=== PATIENT | male | born 1960 | race Caucasian/White ===

== ENCOUNTER 2017-08-17 20:59 | Emergency (ER) | payer SELFPAY ==
[~2017-08-17] VITALS: Ht 177.8 cm; Wt 80.0 kg
--- NOTE | 2017-08-18 07:41 | PD ---
HPI Chief Complaint: Alcohol/Drug Intoxication Time Seen by Provider: 07:40 Travel History International Travel<30 days: No Contact w/Intl Traveler<30days: No Traveled to known affect area: No History of Present Illness HPI Patient is a 56-year-old male who is brought in due to alcohol intoxication. He admits to drinking last night. He has no medical complaints. He denies any falls or trauma. Severity is moderate. [facility] Past Medical History Medical History: Denies Significant Hx Social History Alcohol Use: Yes Tobacco Use: Yes Substance Use: No Allergies-Medications (Allergen,Severity, Reaction): Coded Allergies: Penicillins (Verified Allergy, Unknown, 08/17/17) Reported Meds & Prescriptions Reported Meds & Active Scripts Active No Active Prescriptions or Reported Medications Review of Systems ROS Limitations: Intoxication Physical Exam Narrative GENERAL: Awake and alert, no acute distress. SKIN: Focused skin assessment warm/dry. No wounds or signs of infection. HEAD: Atraumatic. Normocephalic. EYES: Pupils equal and round. No scleral icterus. Extraocular movements intact. ENT: No nasal bleeding or discharge. Mucous membranes pink and moist. NECK: Trachea midline. No JVD. CARDIOVASCULAR: Regular rate and rhythm. No murmur appreciated. RESPIRATORY: No accessory muscle use. Clear to auscultation. Breath sounds equal bilaterally. GASTROINTESTINAL: Abdomen soft, non-tender, nondistended. MUSCULOSKELETAL: No obvious deformities. No clubbing. No cyanosis. No edema. NEUROLOGICAL: Awake and alert. No obvious cranial nerve deficits. Motor grossly within normal limits. Normal speech. PSYCHIATRIC: Appropriate mood and affect; insight and judgment normal. Data Data Orders Orders Alcohol (Ethanol) (08/17/17 21:18) Ed Discharge Order (08/18/17 07:40) Labs Laboratory Tests Test 08/17/17 21:20 Ethyl Alcohol Level 317 MG/DL MDM Medical Decision Making Medical Screen Exam Complete: Yes Emergency Medical Condition: Yes Medical Record Reviewed: Yes Differential Diagnosis Alcohol intoxication versus dehydration versus drug intoxication Narrative Course Patient is a 56-year-old male who is brought in due to intoxication. He has no complaints. He is observed in the emergency department until sober. Advised to quit drinking. Advised follow-up with a primary doctor. Advised return to the ED as needed for any worsening symptoms. Diagnosis Primary Impression: Alcohol intoxication Qualified Codes: F10.920 - Alcohol use, unspecified with intoxication, uncomplicated Patient Instructions: Alcohol Intoxication (ED), General Instructions Additional Instructions: Stop drinking alcohol. Drink plenty of fluids. Return to the ED as needed for any worsening symptoms. Scripts No Active Prescriptions or Reported Meds Disposition: 01 DISCHARGE HOME Condition: Stable Yesi Pagan MD Aug 18, 2017 07:41
== END 2017-08-18 07:44 | disposition home or self-care (01) ==
LOC: NEDAMB 20:59
DX: F10.129 Alcohol abuse with intoxication, unspecified (principal); Y90.8 Blood alcohol level of 240 mg/100 ml or more; Z72.0 Tobacco use; Z88.0 Allergy status to penicillin
CPT/HCPCS: 80307; 99283